=== PATIENT | female | born 1970 | race Caucasian/White ===

== ENCOUNTER 2019-07-12 12:54 | Observation (INO) ==
[2019-07-12 13:01] VITALS: BMI 35.9
--- NOTE | 2019-07-12 13:36 | DR.CP ---
HPI Time Seen Time Seen by Provider: 07/12/19 13:35 PCP Primary Care Physician: ERICKSON POWERS , [facility] HPI Comment HPI Comment: PATIENT IS 49YR OLD FEMALE HERE IN THE EMERGENCY ROOM WITH SHARP SUBSTERNAL CHEST 6/10 PAIN RADIATING TO THE LEFT BACK TIMES SEVERAL HOURS. PAIN IS ASSOCIATED WITH WEAKNESS, SOB AND NAUSEA. NO COUGH OR FEVER OR DYSURIA. DID N OT TAKE MEDICATION FOR PAIN. CURRENTLY SEEING MEDICAL AFFAIRS DIRECTOR FOR LEAKY VALVE. Complaint Chief Complaint Doctor Comments: SUBSTERNAL CHEST PAIN TIMES SEVERAL HOURS. Chief Complaint:: PT C/O THAT PAST HER THERAPY THIS AM SHE BEGAN TO HAVE SUBSTERNAL CP THAT RADIATES TO HER LEFT BACK ( SHARP ) PT IS BEING TX BY [facility] FOR A LEAKY VALVE, XTRA BEATS ./BR Reviewed Nurses Notes Review: Yes Source History Provided: Patient Mode of Arrival Mode of Arrival: Stretcher Timing Onset of Chief Complaint: 07/12/19 Came on: Suddenly Duration Duration: Constant Duration: Hours Location Location of Chest Pain: Chest (SUBSTERNAL CHEST PAIN.) Chest Pain Radiation Location: Back Context Onset: At rest Cardiac Risk Factors: None PE Risk Factors: None Prehospital Care: None Quality Quality: Sharp Severity Severity: Moderate Modifying Factors Worsens: Breathing Impoves: Rest Associated Signs and Symptoms Associated Signs and Symptoms: Shortness of Breath and Nausea/Vomiting Other History Other History: HISTORY ARRHYTHMIA. PMH PMH Past Medical History: Yes Past Medical History Comment: LEAKY VALVE, ARRTHMIA Past Surgical History: Yes Surgical History: and Cholecystectomy Family History History of Family Medical Conditions: No Social History Does patient currently use any type of tobacco product: No Have you used tobacco products in the last 12 months: No Type of Tobacco Use: None Does any household member use tobacco: No Alcohol Use: None Do you use any recreational Drugs:: No Lives With: Family Lives Where: Home infectious screening In the last 2 months have you had wt loss of >10#?: NO Have you had fever, night sweats or hemotysis?: No Have you traveled outside the country in the last 6 months?: No Isolation: Standard ROS Review of Systems Constitutional: No Symptoms Reported, See HPI, Weakness and Fatigue; negative Fever Eyes: No Symptoms Reported and See HPI ENTM: No Symptoms Reported and See HPI Respiratoy: See HPI and Short of Breath; negative Moist Cough and Wheezing Cardiovascular: No Symptoms Reported, See HPI and Chest Pain; negative Edema and Palpitations Gastrointestinal/Abdominal: No Symptoms Reported, See HPI and Nausea; negative Abdominal Pain, Constipation, Diarrhea and Vomiting Genitourinary: No Symptoms Reported and See HPI; negative Dysuria, Frequency and Hematuria Neurological: See HPI and Weakness; negative Headache and Dizziness Musculoskeletal: No Symptoms Reported and See HPI; negative Back Pain and Muscle Pain Integumentary: No Symptoms Reported and See HPI; negative Change in Color, Rash and Juandice Hematologic/Lymphatic: No Symptoms Reported and See HPI; negative Easy Bruising and Swollen Glands Endocrine: No Symptoms Reported and See HPI; negative Increased Thirst and Increased Urine Psychiatric: No Symptoms Reported and See HPI All Other Systems: Reviewed and Negative PE Vitals Vitals: Temperature 98.2 F Pulse Rate 80 Respiratory Rate 14 Blood Pressure 131/69 O2 Sat by Pulse Oximetry 95 General Limitations: No Limitations General Appearance: Alert and In No Apparent Distress Head Head Exam: Normal Inspection and Atraumatic Eyes Eye exam: Normal Appearance and PERRL; negative Scleral Icterus and Conjunctival Injection ENT ENT Exam: Normal Exam, Normal Oropharynx, Normal External Ear Exam and TM's Normal Bilaterally Chest Chest Inspection: Normal Inspection and Symmetric Chest Wall Rise; negative Tenderness Respiratory Respiratory Exam: Normal Lung Sounds Bilat; negative Accessory Muscle Use, Chest Wall Tenderness and Respiratory Distress Respiratory Exam: Bilateral: Clear to Auscultation Cardiovascular Cardiovascular Exam: Regular Rate, Normal Rhythm and Normal Heart Sounds; negative Systolic Murmur and Diastolic Murmur Pulse: Normal Edema: Normal Abdominal Exam Abdominal Exam: Normal Inspection, Normal Bowel Sounds and Soft; negative Tenderness Extremities Extremities Exam: Normal Inspection and Normal Capillary Refill; negative Tenderness, Edema and Calf Tenderness Back Back Exam: Normal Inspection; negative (R) CVA Tenderness and (L) CVA Tenderness Neurologic Neurological Exam: Alert, Oriented X3 and CN II-XII Intact; negative Motor Sensory Deficit Psychiatric Psychiatric Exam: Normal Affect and Normal Mood Skin Skin Exam: Warm, Dry, Intact and Normal Color MDM Differential Diagnosis Differential Diagnosis: Angina, Chest Wall Pain, Cholelithasis, CHF, Costochondritis, Myocardial Infarction, Pericarditis, Pneumonia and Pulmonary Embolus COURSE Treatment Treatment: SEE ORDERS. Consultation Consultation Comments: PATIENT ACCEPTED TO BE ADMITTED TO DR. GARRIDO SERVICE. Education/Counseling Education/Counseling: Patient Educated On: Diagnosis ROR Labs Reviewed Laboratory Results Reviewed?: Yes Result Diagrams: 07/13/19 04:12 07/13/19 04:12 Laboratory: WBC 9.7 X10^3/uL (3.6-10.0) 07/12/19 13: RBC 3.89 X10^6/uL (3.5-5.4) 07/12/19 13: Hgb 12.6 g/dL (12.0-16.0) 07/12/19 13: Hct 36.3 % (36.0-47.0) 07/12/19 13: MCV 93.3 fL (80.0-100.0) 07/12/19 13: MCH 32.3 pg (27.0-34.0) 07/12/19 13: MCHC 34.7 g/dL (33.0-35.0) 07/12/19 13: RDW 14.4 % (11.6-16.5) 07/12/19 13: Plt Count 270 X10^3/uL (150.0-450.0) 07/12/19 13: MPV 9.1 fL (7.4-11.0) 07/12/19 13:27 Neut % (Auto) 68.5 % (42.0-75.0) 07/12/19 13: Lymph % (Auto) 23.7 % (21.0-51.0) 07/12/19 13: [place] % (Auto) 6.4 % (0.0-13.0) 07/12/19 13: Eos % (Auto) 0.9 % (0.9-2.9) 07/12/19 13: Baso % (Auto) 0.5 % (0.2-1.0) 07/12/19 13:27 Neut # (Auto) 6.7 x10^3/uL (2.2-4.8) H 07/12/19 13:27 Lymph # (Auto) 2.3 X10^3/uL (1.3-2.9) 07/12/19 13:27 [place] # (Auto) 0.6 x10^3/uL (0.3-0.8) 07/12/19 13:27 Eos # (Auto) 0.1 x10^3/uL (0.0-0.2) 07/12/19 13:27 Baso # (Auto) 0.0 X10^3/uL (0.0-0.1) 07/12/19 13:27 Absolute Nucleated RBC 0.0 /100WBC 07/12/19 13:27 PT 13.3 SECONDS (11.8-14.3) 07/12/19 13:27 INR Target Range - 07/12/19 13:27 INR 1.05 (0.8-1.3) 07/12/19 13:27 APTT 29.6 SECONDS (22.9-36.5) 07/12/19 13:27 PTT Comment - 07/12/19 13:27 Sodium 143 mmol/L (136-145) 07/12/19 13:27 Corrected Sodium TNP 07/12/19 13:27 Potassium 3.5 mmol/L (3.5-5.1) 07/12/19 13:27 Chloride 106 mmol/L (98-107) 07/12/19 13:27 Carbon Dioxide 27.1 mmol/L (21-32) 07/12/19 13:27 BUN 28 mg/dL (7-18) H 07/12/19 13:27 Creatinine 1.43 mg/dL (0.55-1.02) H 07/12/19 13:27 Est GFR (MDRD) Af Amer 50 (>60) L 07/12/19 13:27 Est GFR (MDRD) Non-Af 41 (>60) L 07/12/19 13:27 Glucose 108 mg/dL (65-99) H 07/12/19 13:27 Calcium 9.3 mg/dL (8.5-10.1) 07/12/19 13:27 Corrected Calcium TNP 07/12/19 13:27 Magnesium 2.0 mg/dL (1.7-2.9) 07/12/19 13:27 Total Bilirubin 0.20 mg/dL (0.2-1.0) 07/12/19 13:27 AST 18 Units/L (15-37) 07/12/19 13:27 ALT 22 Units/L (12-78) 07/12/19 13:27 Alkaline Phosphatase 111 Units/L (46-116) 07/12/19 13:27 Creatine Kinase 76 Units/L (26-192) 07/12/19 13:27 CK-MB (CK-2) < 1.0 ng/mL (0-4.0) 07/12/19 13:27 CK/CKMB % Calc 1.3 % (<4) 07/12/19 13:27 Troponin I < 0.02 ng/mL (0-1.5) 07/12/19 13:27 Total Protein 7.5 g/dL (6.4-8.2) 07/12/19 13:27 Albumin 3.4 g/dL (3.4-5.0) 07/12/19 13:27 Globulin 4.1 g/dL (2.5-4.5) 07/12/19 13:27 Albumin/Globulin Ratio 0.8 Ratio (1.1-2.1) L 07/12/19 13:27 XRAY XRAY Interpreted by: Radiologist XRAY Findings: REPORT NOTED AND DISCUSSED WITH PATIENT. EKG Rate: 76 [place]: Normal Rhythm: NSR Block: None Hypertrophy: LVH ST: Nonsp Opioid Opioid Risk Tool Age (Abdirizak box if 16-45): No History of Preadolescent Sexual Abuse: No Total: 0 Total Score Risk Category: Low Risk Copyright: [facility] predicting aberrant behaviors Diagnosis Discharge Problem: Chest pain Qualifiers: Chest pain type: other chest pain Qualified Code(s): R07.89 - Other chest pain Instructions Instructions: Nonspecific Chest Pain, [id number] Aspirin and Your Heart Antibiotic Medicine, Adult Urinary Tract Infection, Adult, [id number] Hypertension, [id number] Pain Medicine Instructions, [id number] Managing Your Hypertension Forms: Patient Portal
[2019-07-12 13:38] LABS: BASOPHILS % (AUTO) 0.5 % (0.2-1.0); EOSINOPHILS # (AUTO) 0.1 x10^3/uL (0.0-0.2); EOSINOPHILS % (AUTO) 0.9 % (0.9-2.9); HEMATOCRIT 36.3 % (36.0-47.0); HEMOGLOBIN 12.6 g/dL (12.0-16.0); LYMPHOCYTES # (AUTO) 2.3 X10^3/uL (1.3-2.9); LYMPHOCYTES % (AUTO) 23.7 % (21.0-51.0); MEAN CORPUSCULAR HEMOGLOBIN 32.3 pg (27.0-34.0); MEAN CORPUSCULAR HGB CONC 34.7 g/dL (33.0-35.0); MEAN CORPUSCULAR VOLUME 93.3 fL (80.0-100.0); MEAN PLATELET VOLUME 9.1 fL (7.4-11.0); MONOCYTES # (AUTO) 0.6 x10^3/uL (0.3-0.8); MONOCYTES % (AUTO) 6.4 % (0.0-13.0); NEUTROPHILS # (AUTO) 6.7 x10^3/uL (2.2-4.8); NEUTROPHILS % (AUTO) 68.5 % (42.0-75.0); PLATELET COUNT 270 X10^3/uL (150.0-450.0); RED BLOOD COUNT 3.89 X10^6/uL (3.5-5.4); RED CELL DISTRIBUTION WIDTH 14.4 % (11.6-16.5); WHITE BLOOD COUNT 9.7 X10^3/uL (3.6-10.0)
[2019-07-12 13:50] LABS: BLOOD UREA NITROGEN 28 mg/dL (7-18); CALCIUM 9.3 mg/dL (8.5-10.1); CARBON DIOXIDE 27.1 mmol/L (21-32); CHLORIDE 106 mmol/L (98-107); CREATININE 1.43 mg/dL (0.55-1.02); SODIUM 143 mmol/L (136-145); TROPONIN I < 0.02 ng/mL (0-1.5); eGFR NON BLACK RACES 41 (>60)
[2019-07-12 13:54] LABS: ALANINE AMINOTRANSFERASE 22 Units/L (12-78); ALBUMIN 3.4 g/dL (3.4-5.0); ALKALINE PHOSPHATASE 111 Units/L (46-116); ASPARTATE AMINO TRANSFERASE 18 Units/L (15-37); CKMB % 1.3 % (<4); CREATINE KINASE 76 Units/L (26-192); CREATINE KINASE MB < 1.0 ng/mL (0-4.0); TOTAL PROTEIN 7.5 g/dL (6.4-8.2)
--- NOTE | 2019-07-12 14:06 | RAD ---
History: Chest pain and shortness of breath Study: Portable AP chest Comparison: None Findings: There is limited inspiration of clear lungs. The heart and mediastinum are unremarkable. No bony abnormality is demonstrated. There is no edema or effusion. Impression: Limited inspiration, otherwise negative Reported By:
[2019-07-12] MEDS ORDERED: NS 1000 ML 1,000 ML ONE (17:37)
[2019-07-12] MEDS: NS 1000 ML 1,000 ML IV SCH ×2 (17:58→23:58)
--- NOTE | 2019-07-12 20:22 | DR.H&P ---
H&P - History & Physical for Day of: H&P Date: 07/12/19 - Chief Complaint Chief Complaint: CHEST PAIN - History of Present Illness History of Present Illness: IS A 49 YEAR OLD WHITE FEMALE WHO PRESENTED TO THE ER WITH COMPLAINTS OF SUBSTERNAL CHEST PAIN THAT RADIATED TO THE LEFT PAIN. PAIN DESCRIBED SHARP. SHE IS FOLLOWED BY FOR A LEAKY VALVE AND A HEART MURMUR. PAIN REPORTEDLY STARTED EARLY THIS MORNING. ON ARRIVAL TO THE ER, VITALS WERE 98.2-68-20-99%-132/84. LABS WERE OBTAINED. ABNORMAL LAB VALUES INCLUDE THE FOLLOWING: BUN 28, CREATININE 1.43, GLUCOSE 108. CARDIAC ENZYMES WITHIN NORMAL LIMITS. AN EKG WAS OBTAINED AND REVEALED: SINUS RHYTHM WITH HR 76. A CHEST XRAY WAS OBTAINED AND REVEALED: LIMITED INSPIRATION, OTHERWISE, NEGATIVE. SHE WAS ADMITTED TO THE ER FOR FURTHER EVALUATION AND TREATMENT OF CHEST PAIN, RULE OUT ACUTE MT. WE PLAN TO OBTAIN SERIAL CARDIAC ENZYMES AND EKGS. WE WILL START NORMAL SALINE AT [facility] AND RESUME HER HOME MEDICATIONS. OTHERWISE, WE PLAN TO FOLLOW UP WITH AM LABS AND CONTINUE TO MONITOR. - Past Surgical History Surgical History: Cholecystectomy, Ortho Surgery, Other - Family History Family Medical History: Diabetes Mellitus, Cancer, MT, Hypertension - Social History Does patient currently use any type of tobacco product: No Have you used tobacco products in the last 12 months: No Type of Tobacco Use: None Does any household member use tobacco: No Alcohol Use: None Drug Use: None Prescription drug monitoring program results: PDMP was not reviewed - Medications Home Medications: penicillin G Allergy (Verified 07/12/19 12:55) CONTINUE taking the following medications aspirin, buffered [Breanne Plus Extra Strength] 1,000 mg PO QID PRN 07/12/19 [History] hydrochlorothiazide 12.5 mg PO QAM 07/12/19 [History] lisinopril 10 mg PO DAILY 07/12/19 [History] meloxicam 15 mg PO DAILY 07/12/19 [History] metoprolol tartrate 50 mg PO BID 07/12/19 [History] omega [id number]-fish oil [Fish Oil] 1 cap PO QAM 07/12/19 [History] - Review of Systems Constitutional: No Symptoms Reported Eyes: No Symptoms Reported ENT: No Symptoms Reported Respiratory: No Symptoms Reported Cardiovascular: Chest Pain Gastrointestinal: No Symptoms Reported Genitourinary: No Symptoms Reported Musculoskeletal: No Symptoms Reported Skin: No Symptoms Reported Neurological: No Symptoms Reported - Physical Exam Vital Signs: Temperature 98.3 F Pulse Rate [Apical] 78 Pulse Rate 78 Respiratory Rate 18 Blood Pressure [Left Arm] 126/55 Blood Pressure 131/69 O2 Sat by Pulse Oximetry 98 Oriented: Normal Eyes: Normal Ear: Normal Nose: Normal Throat: Normal Respiratory: Clear Throughout Cardiovascular: Normal. negative: S3, S4, Murmur : Normal Auscultation: Bowel Sounds: Normal Palpation: Normal Tenderness: Normal Skin: Normal Musculoskeletal: Normal Psychiatric: Normal Mood Description: Calm Affect: Normal Speech Pattern: Clear - Assessment/Plan (1) Chest pain, rule out acute myocardial infarction Status: Acute Plan: SERIAL CARDIAC ENZYMES AND EKGS, SUPPLEMENTAL OXYGEN, CONTINUE TO MONITOR - Allergies Allergies/Adverse Reactions: Allergies Allergy/AdvReac Type Severity Reaction Status Date / Time penicillin G Allergy Verified 07/12/19 12:55
[2019-07-12] MEDS: LOPRESSOR TAB 50 MG PO SCH (20:26)
[2019-07-12 21:04] LABS: BILIRUBIN,URINE NEGATIVE (NEGATIVE); BLOOD/HEMOGLOBIN,URINE 3+ (NEGATIVE); GLUCOSE, URINE NEGATIVE (NEGATIVE); KETONES,URINE NEGATIVE (NEGATIVE); LEUKOCYTE ESTERASE ,URINE 1+ (NEGATIVE); NITRITES,URINE POSITIVE (NEGATIVE); PROTEIN,URINE 1+ (NEGATIVE); UROBILINOGEN,URINE NORMAL (NORMAL)
[2019-07-12] MEDS ORDERED: MORPHINE SULFATE INJ 2 MG INJ IVP PRN (21:18)
[2019-07-12] MEDS ORDERED: MORPHINE SULFATE INJ 2 MG INJ ONE (21:20)
[2019-07-12 21:21] LABS: APPEARANCE,URINE CLOUDY (CLEAR); BACTERIA,URINE 2+ /HPF (NEGATIVE); COLOR,URINE YELLOW (YELLOW); RBC,URINE 0-2 /HPF (0-3); SQUAMOUS EPITHELIAL CELL,UR MODERATE /HPF (NEGATIVE)
[2019-07-12] MEDS ORDERED: NITROSTAT ONE ×2 (22:33→22:35)
[2019-07-12] MEDS ORDERED: ZOFRAN INJ 4 MG VIAL IVP PRN (22:38)
[2019-07-12] MEDS ORDERED: ZOFRAN INJ 4 MG VIAL ONE (22:39)
[2019-07-12 23:20] LABS: CKMB % 1.3 % (<4); CREATINE KINASE 77 Units/L (26-192); CREATINE KINASE MB < 1.0 ng/mL (0-4.0); TROPONIN I < 0.02 ng/mL (0-1.5)
[2019-07-12] MEDS: LEVAQUIN PREMIX IV 500 MG 500 MG/100 ML BAG IV SCH (23:50)
[2019-07-13 05:18] LABS: BASOPHILS % (AUTO) 0.3 % (0.2-1.0); EOSINOPHILS % (AUTO) 0.6 % (0.9-2.9); LYMPHOCYTES # (AUTO) 1.7 X10^3/uL (1.3-2.9); LYMPHOCYTES % (AUTO) 22.7 % (21.0-51.0); MEAN CORPUSCULAR HEMOGLOBIN 33.2 pg (27.0-34.0); MEAN CORPUSCULAR HGB CONC 34.9 g/dL (33.0-35.0); MEAN PLATELET VOLUME 9.9 fL (7.4-11.0); MONOCYTES # (AUTO) 0.5 x10^3/uL (0.3-0.8); MONOCYTES % (AUTO) 6.1 % (0.0-13.0); NEUTROPHILS # (AUTO) 5.4 x10^3/uL (2.2-4.8); NEUTROPHILS % (AUTO) 70.3 % (42.0-75.0); PLATELET COUNT 174 X10^3/uL (150.0-450.0); RED BLOOD COUNT 3.16 X10^6/uL (3.5-5.4); RED CELL DISTRIBUTION WIDTH 14.5 % (11.6-16.5); WHITE BLOOD COUNT 7.6 X10^3/uL (3.6-10.0)
[2019-07-13 05:41] LABS: ALANINE AMINOTRANSFERASE 35 Units/L (12-78); ALBUMIN 2.7 g/dL (3.4-5.0); ALKALINE PHOSPHATASE 112 Units/L (46-116); ASPARTATE AMINO TRANSFERASE 41 Units/L (15-37); BLOOD UREA NITROGEN 28 mg/dL (7-18); CALCIUM 8.2 mg/dL (8.5-10.1); CARBON DIOXIDE 24.3 mmol/L (21-32); CHLORIDE 109 mmol/L (98-107); CHOLESTEROL 158 mg/dL (0-200); CKMB % 1.6 % (<4); COR CA(FOR HYPOALB) 9.2 mg/dL (8.5-10.1); CREATINE KINASE 61 Units/L (26-192); CREATINE KINASE MB < 1.0 ng/mL (0-4.0); CREATININE 1.09 mg/dL (0.55-1.02); HDL CHOLESTEROL 40 mg/dL (40-60); SODIUM 143 mmol/L (136-145); TOTAL PROTEIN 6.1 g/dL (6.4-8.2); TRIGLYCERIDES 71 mg/dL (0-150); TROPONIN I < 0.02 ng/mL (0-1.5); eGFR NON BLACK RACES 56 (>60)
[2019-07-13 05:58] LABS: HEMOGLOBIN 10.5 g/dL (12.0-16.0)
[2019-07-13] MEDS ORDERED: K-RIDER 10 MEQ/NS 100 ML 10 MEQ/100 ML BAG IV PRN (06:25)
[2019-07-13] MEDS ORDERED: POTASSIUM CHLORIDE LIQ 20 MEQ UDC PO PRN (06:25)
[2019-07-13] MEDS ORDERED: MICRO K EXTEN CAP 10 MEQ PO PRN (06:25)
[2019-07-13] MEDS ORDERED: POTASSIUM CHL 40 MEQ/NS 0.45% 500 ML IV PRN (06:25)
[2019-07-13] MEDS ORDERED: K-DUR TAB 20 MEQ PO PRN (06:25)
[2019-07-13] MEDS ORDERED: POTASSIUM CHL 60 MEQ/NS 0.45% 500 ML IV PRN (06:25)
[2019-07-13] MEDS ORDERED: KLOR-CON PO PRN (06:25)
[2019-07-13] MEDS: NS 1000 ML 1,000 ML IV SCH (06:33)
[2019-07-13] MEDS ORDERED: MOBIC TAB 15 MG PO SCH (09:00)
[2019-07-13] MEDS ORDERED: LOVAZA PO SCH (09:00)
[2019-07-13] MEDS ORDERED: ZESTRIL TAB 10 MG PO SCH (09:00)
[2019-07-13] MEDS: LOPRESSOR TAB 50 MG PO SCH (09:04)
[2019-07-13] MEDS: LEVAQUIN PREMIX IV 500 MG 500 MG/100 ML BAG IV SCH (09:05)
[2019-07-13 12:21] VITALS: BP 100/60
== END 2019-07-13 12:20 | disposition home or self-care (01) ==
LOC: ER 12:54 → MED/SURG 12:54
PROVIDERS: ADMIT Internal Medicine; ATTEND Internal Medicine
DX: I38 Endocarditis, valve unspecified; R94.31 Abnormal electrocardiogram [ECG] [EKG]; B96.1 Klebsiella pneumoniae [K. pneumoniae] as the cause of diseases classified elsewhere; R01.1 Cardiac murmur, unspecified; R94.4 Abnormal results of kidney function studies; R07.89 Other chest pain; Z79.899 Other long term (current) drug therapy
CPT/HCPCS: 36415; 71010; 71045; 80053; 80061; 81001; 82550; 82553; 83735; 84484; 85025; 85610; 85730; 87086; 87088; 87186; 93005; 94760; 96365; 96367; 96374; A4222; G0378; J1956; J2270; J2405; J7030